=== PATIENT | female | born 1980 | race Caucasian/White ===

== ENCOUNTER 2018-01-11 09:09 | Emergency (ER) | payer OTHER ==
[~2018-01-11] VITALS: Ht 170.2 cm; Wt 70.3 kg
[~2018-01-11 09:09] MED LIST: FRS325T PO; OXYC-12 PO; PREN-115 PO
--- NOTE | 2018-01-11 10:48 | ED GU-Female ---
General Chief Complaint: -Female Stated Complaint: POSS MISCARRIAGE--8 WKS PG Nursing Triage Note: pt reports she had a positive preg test in november. Pt states thursday she started having light pink discharge, yesterdy evening it became heavier and was bright red with clots. pt reports back and abdominal cramping and VIZCARRA. Nursing Sepsis Screen: No Definite Risk Source: patient Exam Limitations: no limitations History of Present Illness Date Seen by Provider: January 11, 2018 Time Seen by Provider: 10:44 Initial Comments Patient presents to ER by private conveyance with a chief complaint of vaginal spotting and bleeding for the past 4 days. Today she is having some cramping and passed a few clots. She is a with a history of 3 C-sections last menstrual period of November 15 puts her at 8 weeks and 1 day. She had a positive test December 17. She has not established care yet but she plans to follow with Dr. Roberts. She is afraid she is having a miscarriage. She's never had a miscarriage or before. She is not on control. She has had breast tenderness, nausea, but no other abdominal pain except for the cramping that started this morning around 0300. She's having no fevers, chills, right upper quadrant abdominal pain, double vision or painful urination. Last sexual intercourse was 4 days ago prior to her pink tinged vaginal secretions. Allergies and Home Medications Allergies Coded Allergies: No Known Drug Allergies (Unverified , 07/20/12) Home Medications Ferrous Sulfate 325 Mg Tablet, 1 TAB PO DAILY, (Reported) Oxycodone Hcl/Acetaminophen 1 Each Tablet, 1-2 TAB PO Q4H, (Reported) Vit #108/Iron/Fa 1 Each Tablet, 1 EACH PO DAILY, (Reported) Patient Home Medication List Home Medication List Reviewed: Yes Review of Systems Constitutional: No chills, No diaphoresis EENTM: No hearing loss, No ear pain Respiratory: No cough, No short of breath Cardiovascular: No chest pain, No edema Gastrointestinal: No abdominal pain, No constipation, No diarrhea, No nausea, No vomiting Genitourinary: see HPI; denies burning, denies dysuria : Yes Expected Date of Delivery: Aug 22, 2018 LMP: Nov 15, 2017 Musculoskeletal: No back pain, No joint pain Skin: No pruritus, No rash Past Cmvhhld-Zadxeb-Tvnofv Hx Patient Social History Alcohol Use: Denies Use Recreational Drug Use: No Smoking Status: Never a Smoker Recent Foreign Travel: No Contact w/Someone Who Travel: No Recent Infectious Disease Expo: No Physical Abuse: No Sexual Abuse: No Mistreated: No Fear: No Immunizations Up To Date Date of Influenza Vaccine: Jun 16, 2012 Past Medical History Tonsillectomy Respiratory: No Cardiac: No Neurological: No Reproductive Disorders: No Genitourinary: No Gastrointestinal: No Musculoskeletal: No Endocrine: No HEENT: No Cancer: No Psychosocial: No Nursing Suicide Risk Score: 0 Integumentary: No Blood Disorders: No Physical Exam Vital Signs Vital Signs - First Documented 01/11/18 10:01 Temp 97.8 Pulse 82 Resp 18 B/P (MAP) 122/82 (95) Pulse Ox 99 Capillary Refill : Less Than 3 Seconds General Appearance: WD/WN, no apparent distress HEENT: PERRL/EOMI, pharynx normal Cardiovascular: normal peripheral pulses, regular rate, rhythm Respiratory: no respiratory distress, no accessory muscle use Gastrointestinal: normal bowel sounds, non tender, soft, other (fundus nonpalpable) Extremities: non-tender, normal inspection, no pedal edema, no calf tenderness , normal capillary refill Neurologic/Psychiatric: alert, normal mood/affect, oriented x 3 Skin: normal color, warm/dry Progress/Results/Core Measures Suspected Sepsis Recent Fever Within 48 Hours: No Infection Criteria Present: None New/Unexplained Altered Menta: No Sepsis Screen: No Definite Risk SIRS Temperature:97.8 Pulse: 82 Respiratory Rate: 18 Laboratory Tests 01/11/18 11:12: White Blood Count 7.2 Blood Pressure 122 /82 Mean: 95 Laboratory Tests 01/11/18 11:12: Platelet Count 291 Results/Orders Lab Results Laboratory Tests Test 01/11/18 10:38 01/11/18 11:12 Range/Units Urine Color YELLOW Urine Clarity CLEAR Urine pH 7 5-9 Urine Specific [place] 1.010 L 1.016-1.022 Urine Protein NEGATIVE NEGATIVE Urine Glucose (UA) NEGATIVE NEGATIVE Urine Ketones NEGATIVE NEGATIVE Urine Nitrite NEGATIVE NEGATIVE Urine Bilirubin NEGATIVE NEGATIVE Urine Urobilinogen NORMAL NORMAL MG/DL Urine Leukocyte Esterase NEGATIVE NEGATIVE Urine RBC (Auto) 5+ H NEGATIVE Urine RBC 2-5 H /HPF Urine WBC NONE /HPF Urine Squamous Epithelial Cells 0-2 /HPF Urine Crystals NONE /LPF Urine Bacteria NEGATIVE /HPF Urine Casts NONE /LPF Urine Mucus NEGATIVE /LPF Urine Culture Indicated NO White Blood Count 7.2 4.3-11.0 10^3/uL Red Blood Count 4.42 4.35-5.85 10^6/uL Hemoglobin 12.7 11.5-16.0 G/DL Hematocrit 37 35-52 % Mean Corpuscular Volume 84 80-99 FL Mean Corpuscular Hemoglobin 29 25-34 PG Mean Corpuscular Hemoglobin Concent 34 32-36 G/DL Red Cell Distribution Width 13.2 10.0-14.5 % Platelet Count 291 130-400 10^3/uL Mean Platelet Volume 9.9 7.4-10.4 FL Neutrophils (%) (Auto) 68 42-75 % Lymphocytes (%) (Auto) 23 12-44 % Monocytes (%) (Auto) 6 0-12 % Eosinophils (%) (Auto) 4 0-10 % Basophils (%) (Auto) 0 0-10 % Neutrophils # (Auto) 4.9 1.8-7.8 X 10^3 Lymphocytes # (Auto) 1.6 1.0-4.0 X 10^3 Monocytes # (Auto) 0.4 0.0-1.0 X 10^3 Eosinophils # (Auto) 0.3 0.0-0.3 10^3/uL Basophils # (Auto) 0.0 0.0-0.1 10^3/uL My Orders Orders - DEANNE QUINTANA Cbc With Automated Diff (01/11/18 10:42) Comprehensive Metabolic Panel (01/11/18 10:42) Hcg,Quantitative (01/11/18 10:42) Ua Culture If Indicated (01/11/18 10:42) RH (01/11/18 10:42) Us Ob Single Fetus<14 [id number] (01/11/18 10:42) Vital Signs/I&O 01/11/18 10:01 Temp 97.8 Pulse 82 Resp 18 B/P (MAP) 122/82 (95) Pulse Ox 99 Capillary Refill : Less Than 3 Seconds Blood Pressure Mean: 95 Progress Note #1: Time: 10:47 Progress Note At 8 weeks he should we'll see whether or not there is a ectopic . We will obtain a quantitative and have her follow up outpatient. She's not requiring anything for nausea or pain at this time. Progress Note #2: Time: 11:42 Progress Note [employer] patient about expectant management of miscarriage. Encourage her to get a follow-up appointment for the end of this week or early next week with Dr. Roberts or other practitioner so that if she has not passed by then or is having trouble she can consider medical or surgical intervention. We discussed the risks benefits and alternatives of the different approaches and she agrees with doing expectant management at this time. Discussed contraceptive management. Diagnostic Imaging Diagonstic Imaging: Ultrasound Plain Films/CT/US/NM/MRI: pelvis (ob pre 14 weeks) Comments 6 week sac without pole at the cervical os. No ectopic . Reviewed: Reviewed by Me Departure Impression Primary Impression: Miscarriage Disposition: 01 HOME, SELF-CARE Condition: Stable Departure-Patient Inst. Decision time for Depature: 11:43 Referrals: NO,LOCAL PHYSICIAN (PCP/Family) Primary Care Physician Patient Instructions: Dealing With Miscarriage, Miscarriage (DC) Add. Discharge Instructions: Make plans to follow-up with an OB provider within the end of this week or early next week. If your symptoms are not controlled by 800 mg ibuprofen every 8 hours, 1000 g Tylenol, heating pads and rest then you should follow-up sooner with them and discuss medical or surgical intervention for your miscarriage. All discharge instructions reviewed with patient and/or family. Voiced understanding. Work/School Note: Work Release Form Date Seen in the Emergency Department: January 11, 2018 Return to Work: January 18, 2018 Restrictions: No Restrictions Copy Copies To 1: XIAO ROBERTS MD, TITUS J January 11, 2018 10:48
[2018-01-11 11:10] LABS: BILIRUBIN,URINE NEGATIVE (NEGATIVE); CLARITY,URINE CLEAR; COLOR,URINE YELLOW; GLUCOSE, URINE (UA) NEGATIVE (NEGATIVE); KETONES,URINE NEGATIVE (NEGATIVE); LEUKOCYTE ESTERASE ,URINE NEGATIVE (NEGATIVE); NITRITE,URINE NEGATIVE (NEGATIVE); PH,URINE 7 (5-9); PROTEIN,URINE NEGATIVE (NEGATIVE); UROBILINOGEN,URINE NORMAL (NORMAL)
[2018-01-11 11:19] LABS: BACTERIA,URINE NEGATIVE /HPF; SQUAMOUS EPITHELIAL CELL,UR 0-2 /HPF
[2018-01-11 11:23] LABS: BASOPHILS % (AUTO) 0 % (0-10); EOSINOPHILS # (AUTO) 0.3 10^3/uL (0.0-0.3); EOSINOPHILS % (AUTO) 4 % (0-10); HEMATOCRIT 37 % (35-52); HEMOGLOBIN 12.7 G/DL (11.5-16.0); LYMPHOCYTES # (AUTO) 1.6 X 10^3 (1.0-4.0); LYMPHOCYTES % (AUTO) 23 % (12-44); MEAN CORPUSCULAR HEMOGLOBIN 29 PG (25-34); MEAN CORPUSCULAR HGB CONC 34 G/DL (32-36); MEAN CORPUSCULAR VOLUME 84 FL (80-99); MEAN PLATELET VOLUME 9.9 FL (7.4-10.4); MONOCYTES # (AUTO) 0.4 X 10^3 (0.0-1.0); MONOCYTES % (AUTO) 6 % (0-12); NEUTROPHILS # (AUTO) 4.9 X 10^3 (1.8-7.8); NEUTROPHILS % (AUTO) 68 % (42-75); PLATELET COUNT 291 10^3/uL (130-400); RED BLOOD COUNT 4.42 10^6/uL (4.35-5.85); RED CELL DISTRIBUTION WIDTH 13.2 % (10.0-14.5); WHITE BLOOD COUNT 7.2 10^3/uL (4.3-11.0)
--- NOTE | 2018-01-11 11:44 | Diagnostic Imaging Report ---
PROCEDURE: US OB SINGLE FETUS <14 WKS. TECHNIQUE: Multiple real-time grayscale images were obtained over the gravid uterus in various projections. INDICATION: Cramping and bleeding. There is an irregular-shaped gestational sac located in the lower uterine segment near the internal cervical os. Gestational sac dimensions are consistent with approximately 6 weeks 3 days. No pole is seen at this time. Endometrium is abnormally thickened at 19 mm and heterogeneous, likely containing blood products. Ovaries are unremarkable. No adnexal mass or free fluid is seen. IMPRESSION: Irregular-shaped gestational sac low in location near the internal cervical os, without evidence of pole. Features are suggestive of evolving spontaneous with blood products in the endometrial canal. The adnexa are unremarkable. Dictated by: Dictated on workstation # [id number]
[2018-01-11 11:48] LABS: ALANINE AMINOTRANSFERASE < 6 U/L (0-55); ALBUMIN 4.5 GM/DL (3.2-4.5); ALKALINE PHOSPHATASE 52 U/L (40-136); BILIRUBIN,TOTAL 0.6 MG/DL (0.1-1.0); BUN/CREATININE RATIO 10; CALCIUM 9.1 MG/DL (8.5-10.1); CARBON DIOXIDE 22 MMOL/L (21-32); CHLORIDE 108 MMOL/L (98-107); CREATININE SERUM 0.71 MG/DL (0.60-1.30); GFR ESTIMATED > 60; GLUCOSE 97 MG/DL (70-105); POTASSIUM 3.7 MMOL/L (3.6-5.0); SODIUM 138 MMOL/L (135-145); TOTAL PROTEIN 7.2 GM/DL (6.4-8.2)
[2018-01-11 12:47] VITALS: BP 115/83
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
== END 2018-01-11 12:47 | disposition home or self-care (01) ==
LOC: EDUNIT# 09:09 → ER 09:12
DX: O03.9 Complete or unspecified spontaneous abortion without complication (principal); Z90.89 Acquired absence of other organs; Z87.59 Personal history of other complications of pregnancy, childbirth and the puerperium
CPT/HCPCS: 36415; 76801; 80053; 81000; 84702; 85025; 86901

== ENCOUNTER → 2021-01-14 | Outpatient (CLI) | payer OTHER ==
[2021-01-14 12:45] LABS: BASOPHILS % (AUTO) 1 % (0-10); EOSINOPHILS # (AUTO) 0.3 10^3/uL (0.0-0.3); EOSINOPHILS % (AUTO) 4 % (0-10); HEMATOCRIT 38 % (35-52); HEMOGLOBIN 11.8 g/dL (11.5-16.0); LYMPHOCYTES # (AUTO) 2.3 10^3/uL (1.0-4.0); LYMPHOCYTES % (AUTO) 32 % (12-44); MEAN CORPUSCULAR HEMOGLOBIN 26 pg (25-34); MEAN CORPUSCULAR HGB CONC 32 g/dL (32-36); MEAN CORPUSCULAR VOLUME 82 fL (80-99); MEAN PLATELET VOLUME 10.6 fL (9.0-12.2); MONOCYTES # (AUTO) 0.5 10^3/uL (0.0-1.0); MONOCYTES % (AUTO) 7 % (0-12); NEUTROPHILS # (AUTO) 4.1 10^3/uL (1.8-7.8); NEUTROPHILS % (AUTO) 57 % (42-75); PLATELET COUNT 334 10^3/uL (130-400); WHITE BLOOD COUNT 7.2 10^3/uL (4.3-11.0)
[2021-01-14 12:51] LABS: ALBUMIN 4.5 GM/DL (3.2-4.5); CHLORIDE 106 MMOL/L (98-107); POTASSIUM 3.9 MMOL/L (3.6-5.0); SODIUM 140 MMOL/L (135-145)
[2021-01-14 12:52] LABS: AMYLASE 65 U/L (25-125); CALCIUM 9.2 MG/DL (8.5-10.1)
[2021-01-14 12:53] LABS: GLUCOSE 90 MG/DL (70-105); TOTAL PROTEIN 7.3 GM/DL (6.4-8.2)
[2021-01-14 12:54] LABS: CARBON DIOXIDE 25 MMOL/L (21-32)
[2021-01-14 12:55] LABS: BILIRUBIN,TOTAL 0.6 MG/DL (0.1-1.0)
[2021-01-14 12:57] LABS: ALKALINE PHOSPHATASE 68 U/L (40-136); CREATININE SERUM 0.85 MG/DL (0.60-1.30); GFR ESTIMATED > 60
[2021-01-14 12:58] LABS: BUN/CREATININE RATIO 9
[2021-01-14 13:00] LABS: ALANINE AMINOTRANSFERASE 13 U/L (0-55); LIPASE 31 U/L (8-78)
[2021-01-14 13:07] LABS: CREATINE KINASE MB 0.4 NG/ML (<6.6)
== END ==
LOC: LABNPT 12:36
PROVIDERS: ATTEND Family Medicine
DX: R07.9 Chest pain, unspecified (principal)
CPT/HCPCS: 80053; 82150; 82553; 83690; 83874; 84484; 84703; 85025

== ENCOUNTER → 2022-02-12 | Outpatient (CLI) | payer OTHER ==
--- NOTE | 2022-02-12 15:47 | Diagnostic Imaging Report ---
INDICATION: Nodule in the right cheek. EXAMINATION: Sonographic interrogation of the area of palpable abnormality was performed. There is a solid nodule at the area of palpable abnormality measuring 2.6 x 2.7 x 1.7 cm. This does show internal vascularity. Incidental note is made of subcentimeter hypoechoic nodules in the right lobe of the thyroid. IMPRESSION: Solid nodule at the area of palpable abnormality. A dedicated CT soft tissue neck study with contrast would be recommended for better characterization. Dictated by: Dictated on workstation # [id number]
== END ==
LOC: RAD 14:30
PROVIDERS: ATTEND Family Medicine
DX: R22.0 Localized swelling, mass and lump, head (principal); K21.9 Gastro-esophageal reflux disease without esophagitis; J30.2 Other seasonal allergic rhinitis
CPT/HCPCS: 76536

== ENCOUNTER → 2022-02-25 | Outpatient (CLI) | payer OTHER ==
[~2022-02-25] MED LIST changes: +HOLD METFORMIN - RECEIVED CONTRAST 20 ML VIAL IV SCH; +IOHEXOL 350 MG/ML 100 ML (OMNIPAQUE 350) VIAL IV ONE; +NS 100 ML (IVPB) BAG IV ONE
--- NOTE | 2022-02-25 17:42 | Diagnostic Imaging Report ---
PROCEDURE: CT neck soft tissue with contrast. TECHNIQUE: Multiple contiguous axial images were obtained through the neck after the administration of contrast. Auto Exposure Controls were utilized during the CT exam to meet ALARA standards for radiation dose reduction. INDICATION: Right cheek lump COMPARISON: There are no prior CT examinations available for comparison. The ultrasound examination of the head and neck performed on 02/12/2022 did note a 2.6 x 2.7 x 1.7 cm solid nodule. On this exam there is a similar-sized slightly dense nodule within the right parotid gland. I do suspect that this corresponds to the finding of the ultrasound. Most likely this is a benign process such as a pleomorphic adenoma. A malignant lesion cannot be entirely excluded however. An ENT consult would be recommended. No other mass or adenopathy is identified. The left parotid gland is unremarkable as are the submandibular glands. The small hypoechoic nodules within the thyroid seen on the previous ultrasound exam are again evident and unchanged. The lung apices are generally clear. The intracranial contents, where visualized, show no sign of an acute abnormality. The bone windows are unremarkable for a fracture or for a destructive lesion. IMPRESSION: 1. There is a solid mass in the right parotid gland. This would correspond to the findings of the ultrasound exam and most likely this is a benign process such as a pleomorphic adenoma. A malignant lesion cannot be entirely excluded however. An ENT consult would be recommended. 2. There is no other mass or adenopathy identified and there is no sign of an acute abnormality. Dictated by: Dictated on workstation # [id number]
== END ==
LOC: RAD 15:58
PROVIDERS: ATTEND Nurse Practitioner Family
DX: R22.0 Localized swelling, mass and lump, head (principal); J30.2 Other seasonal allergic rhinitis; K21.9 Gastro-esophageal reflux disease without esophagitis; Z76.0 Encounter for issue of repeat prescription; K11.8 Other diseases of salivary glands
CPT/HCPCS: 70491